=== PATIENT | male | born 1940 | race Caucasian/White ===

== ENCOUNTER 2020-06-16 15:04 | Outpatient (CLI) | payer OTHER | END 2020-06-16 15:18 | disposition home or self-care (01) | LOC: SONOGRAMA 15:04 → EDBD 15:04 → SONOGRAMA 15:18 | PROVIDERS: ATTEND Internal Medicine Endocrinology, Diabetes & Metabolism | DX: E04.1 Nontoxic single thyroid nodule (principal) ==

== ENCOUNTER 2022-05-18 13:59 | Outpatient (CLI) | payer OTHER | END 2022-05-18 14:02 | disposition home or self-care (01) | LOC: LAB 13:59 | PROVIDERS: ATTEND Orthopaedic Surgery | DX: E55.9 Vitamin D deficiency, unspecified (principal); M85.9 Disorder of bone density and structure, unspecified; E56.1 Deficiency of vitamin K; M81.8 Other osteoporosis without current pathological fracture ==